=== PATIENT | female | born 1980 | race Caucasian/White ===

== ENCOUNTER 2016-08-20 07:30 | Day surgery (SDC) | payer BC ==
[~2016-08-20] VITALS: Ht 167.6 cm; Wt 130.0 kg
[~2016-08-20 07:30] MED LIST: AC500T PO; ACETAMINOPHEN 500 MG TAB (TYLENOL) PO SCH; ALBU8.5H2 IH; CLIN-78 PO; ETON68IM3 SQ; FLUO10CA19 PO; HYDR-3754 PO; IBP200T PO; IBUP-15 PO; LACTATED RINGERS 1,000 ML IV SCH; NO HOME MEDICATIONS; ONDA4TAB8 PO; OXYC-109 PO; OXYC1TAB87 PO; PREN-47 PO; SODIUM CHLORIDE FLUSH 3 ML SYR IV PRN; ceFAZolin 2,000 MG in WATER (STERILE) FOR INJECTION 20 ML IV SCH; oxyCODONE IMMEDIATE RELEASE 5 MG (OXYIR) TAB PO SCH
--- OUTSIDE RECORDS SUMMARY | 2016-08-20 07:34 | XMS REPORT | Continuity of Care Document ---
Author Author [facility] Address Unknown Phone Unavailable Allergies Active Description Code Type Severity Reaction Onset Reported/Identified Relationship to Patient Clinical Status Yes moxifloxacin [id number] Drug Allergy Unknown ITCHES FACE OFF 04/22/2013 Medications Problems Date Dx Coded Attending Type Code Diagnosis Diagnosed By 04/06/2013 LES ROSEN, BRIANA Greenwood Ot 625.9 FEM GENITAL SYMPTOMS NOS 04/06/2013 LES ROSEN, BRIANA Greenwood Ot 646.83 PREG COMPL NEC-ANTEPART 04/06/2013 LES ROSEN, BRIANA Greenwood Ot 655.73 DECR MOVEMNT ANTEPARTUM CONDITION 04/13/2013 AUSTIN ROSEN, LOUISA Yang Ot 644.03 THRT BALTAZAR LABOR-ANTEPART 04/26/2013 LOUISA AVILA MD Ot 642.41 MILD/NOS PREECLAMP-DELIV 04/26/2013 LOUISA AVILA MD Ot 649.01 TOBACCO USE DISORDER COMP PREG/ CHILDBIRT 04/26/2013 LOUISA AVILA MD Ot 653.41 FETOPELV DISPROPOR-DELIV 04/26/2013 LOUISA AVILA MD Ot 661.21 UTERINE INERT NEC-DELIV 04/26/2013 LOUISA AVILA MD Ot V27.0 DELIVER-SINGLE LIVEBORN 06/02/2013 CINDY VENTURA DO Ot 592.1 CALCULUS OF URETER 06/02/2013 CINDY VENTURA DO Ot 620.2 OVARIAN CYST NEC/NOS 06/02/2013 CINDY VENTURA DO Ot 789.09 ABDOMINAL PAIN, OTHER SPECIFIED SITE 07/05/2015 Ot R09.1 PLEURISY 07/05/2015 Ot R10.11 RIGHT UPPER QUADRANT PAIN 07/21/2015 VINH ROSEN, YUSRA R Ot R07.9 07/21/2015 VINH ROSEN, YUSRA R Ot M25.511 07/21/2015 VINH ROSEN, YUSRA R Ot M54.6 07/21/2015 VINH ROSEN, YUSRA R Ot R10.11 07/21/2015 VINH ROSEN, YUSRA R Ot R79.89 07/28/2015 VINH ROSEN, YUSRA R Ot M25.511 07/28/2015 VINH ROSEN, YUSRA R Ot M54.6 07/28/2015 VINH ROSEN, YUSRA R Ot R10.11 07/28/2015 VINH ROSEN, YUSRA R Ot R79.89 07/28/2015 VINH ROSEN, YUSRA R Ot R07.9 11/08/2015 HUNTER ROSEN, BARTOLOME Zamora Ot L05.91 PILONIDAL CYST WITHOUT ABSCESS 11/19/2015 BARTOLOME HARRISON MD Ot L05.91 PILONIDAL CYST WITHOUT ABSCESS 06/25/2016 SWEAT PA, AIXA L Ot 729.81 SWELLING OF LIMB 06/25/2016 ANG ROSEN, TRACEY Arriola Ot 592.9 URINARY CALCULUS NOS 06/25/2016 Ot Z53.9 PROCEDURE AND TREATMENT NOT CARRIED OUT, 06/25/2016 VINH ROSEN, YUSRA R Ot R07.9 CHEST PAIN, UNSPECIFIED 06/25/2016 VINH ROSEN, YUSRA R Ot M25.511 PAIN IN RIGHT SHOULDER 06/25/2016 VINH ROSEN, YUSRA R Ot M54.6 PAIN IN THORACIC SPINE 06/25/2016 VINH ROSEN, YUSRA R Ot R10.11 RIGHT UPPER QUADRANT PAIN 06/25/2016 VINH ROSEN, YUSRA R Ot R79.89 OTHER SPECIFIED ABNORMAL FINDINGS OF BLO 06/25/2016 HUNTER ROSEN, BARTOLOME Zamora Ot L05.91 PILONIDAL CYST WITHOUT ABSCESS Procedures Code Description Performed By Performed On 74.1 LOW CERVICAL 04/23/2013 Results Encounters ACCT No. Visit Date/Time Discharge Status Pt. Type Provider Facility Loc./Unit Complaint [id number] 06/04/2013 10:26:00 2013 23:59:59 CLS Outpatient ANG RSOEN, TRACEY Arriola [facility] LAB [id number] 06/02/2013 07:17:00 2013 11:20:00 DIS Emergency [facility] CINDY MONROE [facility] ED HSB [id number] 04/30/2013 09:48:00 2012 23:59:59 CLS Outpatient SWEAT PA, AIXA [facility] RAD [id number] 04/22/2013 09:48:00 2012 11:25:00 DIS Inpatient OVERHOLKianna ROSEN, [facility] OB [id number] 04/13/2013 11:42:00 2012 13:15:00 DIS Outpatient AUSTIN ROSEN, [facility] OBGOP [id number] 04/06/2013 16:04:00 2012 17:30:00 DIS Outpatient LES ROSEN, [facility] OBGOP LABOR EVAL [id number] 08/20/2016 09:00:00 PEN Preadmit TAJ ROSEN, [facility] ASC [id number] 11/03/2015 12:40:00 ACT Outpatient HUNTER RSOEN, [facility] LAB LAB DROP OFF DR HARRISON [id number] 07/07/2015 06:45:00 ACT Outpatient VINH ROSEN, [facility] RAD ELEVATED D DIMER [id number] 07/06/2015 10:56:00 ACT Outpatient VINH ROSEN, [facility] LAB [id number] 07/05/2015 17:07:00 Document Registration [id number] 07/05/2015 16:48:00 Document Registration
[2016-08-20 07:45] VITALS: BP 146/101
[2016-08-20] MEDS ORDERED: LIDOCAINE/EPINEPHRINE 1% 1:100,000 (XYLOCAINE) 30 ML VIAL INJ ONE (07:56)
[2016-08-20] MEDS ORDERED: BUPIVACAINE/EPINEPHRINE 0.25%-1:200,000 (MARCAINE) 30 ML VIAL INJ ONE (07:56)
[2016-08-20] MEDS ORDERED: METHYLENE BLUE 1% 10 MG/ML 10 ML VIAL ONE (08:21)
[2016-08-20] MEDS ORDERED: SUCCINYLCHOLINE 20 MG/ML 10 ML VIAL ONE (08:52)
[2016-08-20] MEDS ORDERED: ALFENTANIL 1,000 MCG/2 ML AMP IV ONE (08:52)
[2016-08-20] MEDS ORDERED: PROPOFOL 20 ML IV ONE (08:52)
[2016-08-20] MEDS ORDERED: ROCURONIUM 50 MG/5 ML (ZEMURON) VIAL IV ONE (09:17)
[2016-08-20] MEDS ORDERED: ceFAZolin 1000 MG (ANCEF) VIAL ONE (09:55)
[2016-08-20 10:27] VITALS: BP 140/78
[2016-08-20 10:49] VITALS: BP 149/78
[2016-08-20] MEDS ORDERED: HYDROcodone/APAP 5 MG/325 MG (NORCO) TAB PO PRN (10:50)
[2016-08-20] MEDS ORDERED: ONDANSETRON 2 MG/ML (Z0FRAN) 2 ML VIAL IV PRN (10:50)
--- NOTE | 2016-08-20 13:04 | OPERATIVE REPORT ---
DATE OF OPERATION: 08/20/2016 PRE-OPERATIVE DIAGNOSIS: Pilonidal sinus POST-OPERATIVE DIAGNOSIS: Pilonidal sinus OPERATIVE PROCEDURE: Extensive excision of pilonidal sinuses x2. SURGEON: Manolo Gan MD SOCIOLOGY INSTRUCTOR: Ana Singh RN CSFA ANESTHESIA: General orotracheal POSITION: Jackknife prone with buttocks spread apart PREP: Betadine paint ESTIMATED BLOOD LOSS: Minimal FINDINGS: 1. Two separate small sinus tracts approximately 5 cm apart, which did not appear to be interconnecting. 2. No evidence of inflammation. 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 She presents at this time for definitive excision as she currently has no inflammation. OPERATIVE NOTE: Following satisfaction induction of anesthesia, the patient was positioned, prepped, and draped in the sterile fashion. Local anesthetic of 0.25% Marcaine with epinephrine was infiltrated at planned incision site. Methylene blue was injected into the upper sinus tract, which was fairly shallow. The lower sinus tract could not be accessed for injection. The skin and subcutaneous tissues around the 2 sinus tracts was excised en bloc and submitted to pathology. Closure was accomplished as follows. Three, #1 nylon sutures were placed through the skin and subcutaneous tissue to the depth of the wound. Buttocks were then released, and the skin incision was closed with interrupted helga sutures of 3-0 nylon. Telfa was applied over the incision. A gauze roll was applied over the Telfa and the #1 retention sutures tied over the bolsters. Occlusive dressing was applied and the patient transferred to recovery in stable condition. Final instrument, needle, and sponge counts correct.
== END 2016-08-20 10:59 | disposition home or self-care (01) ==
LOC: ASC 07:30
PROVIDERS: ATTEND Surgery
DX: L05.92 Pilonidal sinus without abscess (principal); J45.909 Unspecified asthma, uncomplicated; E66.01 Morbid (severe) obesity due to excess calories; Z68.42 Body mass index [BMI] 45.0-49.9, adult
CPT/HCPCS: 11771; J0330; J0690; J7120; Q9968